=== PATIENT | male | born 1980 | race Hispanic/Latino ===

== ENCOUNTER 2023-08-28 19:18 | Emergency (ER) | payer BC, SELFPAY ==
--- NOTE | ~2023-08-28 | CT_ITS ---
EXAMINATION: CT brain wo con INDICATION: Headache COMPARISON: None TECHNIQUE: Standard unenhanced head CT. The dose-length product (DLP) was 605.33 mGy-cm. The mA was a djusted according to patient size. Iterative reconstruction technique was employed. FINDINGS: No intracranial hemorrhage, acute infarction, or abnormal mass lesion. The ventricles are n ormal. No abnormal mass effect or midline shift. The renner-white matter differentiation is normal. The basal cisterns are patent. The orbits are normal. The paranasal sinuses, mastoids and calvarium are normal. IMPRESSION: 1. No acute intracranial abnormality. Reviewed, dictated and finalized at location F. ING MACHINE OPERATOR
--- NOTE | ~2023-08-28 | XR_ITS ---
EXAMINATION: XR chest 2V DATE: 08/28/2023 21:33 INDICATION: Cough, upper respiratory infection TECHNIQUE: PA and lateral views of the chest are obtained. COMPARISON: None available FINDINGS: The lungs are free of acute opacities. No pleural effusion or pneumothorax. The cardiomedia stinal silhouette is normal. There is mild anterior wedging of multiple thoracic vertebral bodies, li roosevelt physiologic. IMPRESSION: 1. No acute cardiopulmonary abnormality. Reviewed, dictated and finalized at location F. MACOMETRICIAN
[2023-08-28 20:01] VITALS: BP 149/88; PULSE 99; RESP 18; TEMP 37.5; O2SAT 100
[2023-08-28 20:57] LABS: Influenza A QL RT-PCR Negative (Negative); Influenza B QL RT-PCR Negative (Negative); RSV RNA, RT-PCR Negative (Negative); SARS-CoV-2 RNA PCR Negative (Negative)
[2023-08-28] MEDS: ACETAMINOPHEN 500 MG TABLET 1000 MG PO (22:04)
[2023-08-28] MEDS: METOCLOPRAMIDE HCL INJ 10 MG/2 ML VIAL IV PUSH (22:05)
[2023-08-28] MEDS: SODIUM CHLORIDE 0.9% IV 1,000 ML 999 ML IV CONT ×2 (22:05)
[2023-08-28] MEDS: diphenhydrAMINE HCl INJ 50 MG/ML VIAL 25 MG IV PUSH (22:05)
--- NOTE | 2023-08-28 22:14 | ED.URI ---
HPI - URI/Sore Throat General Chief Complaint: Upper Respiratory Infection Stated Complaint: headache, flu-like symptoms for 3 weeks Time Seen by Provider: 08/28/23 20:40 Source: patient Mode of arrival: ambulatory Limitations: no limitations History of Present Illness HPI Narrative: Patient is a 43-year-old male who presents the ED with multiple complaints. Patient reports having ongoing upper respiratory symptoms for the last 3 weeks since around [place] time. He complains of intermittent fevers, cough, congestion, weakness, myalgias, headaches, nausea. He has been taking Advil for his symptoms. States headache is worse today than usual, mostly in his frontal region which prompted his presentation. He denies dizziness, lightheadedness, vision changes, chest pain. Denies feeling numbers with similar symptoms or known sick contacts. Related Data Allergies Allergy/AdvReac Type Severity Reaction Status Date / Time No Known Allergies Allergy Verified 08/28/23 22:00 Review of Systems Review of Systems: CONSTITUTIONAL: See HPI ENT: See HPI. CARDIOVASCULAR: Denies chest pain, palpitations, or edema. RESPIRATORY: See HPI. GASTROINTESTINAL: See HPI. GENITOURINARY: Denies dysuria or hematuria. MUSCULOSKELETAL: Reports myalgia. NEUROLOGIC: See HPI. All systems reviewed & are unremarkable except as noted in HPI and below Exam Narrative: GENERAL: Mildly ill appearing, obese with BMI of 37.6, non-toxic, in no acute distress. HEAD: Normocephalic, atraumatic. EENT: PERRL/EOMI, conjunctiva clear bilaterally. Mucous membranes moist. Mild posterior pharynx erythema. No tonsillar hypertrophy or exudate. Uvula midline. NECK: Supple. No meningeal signs. RESPIRATORY: Airway patent, respirations nonlabored. Clear to auscultation bilaterally, no rales, rhonchi, wheezing. No significant focal lung sounds. CARDIOVASCULAR: Borderline tachycardic with regular rhythm without murmurs, rubs, or gallops. MUSCULOSKELETAL: Moves all extremities. No gross deformities. SKIN: Warm, dry, normal color. NEURO: A&O X3. Speech clear. Cranial nerves II-XII grossly intact. No ataxic movements. No focal deficits. PSYCHIATRIC: Appropriate mood and affect. Normal interaction. Course Vital Signs Vital signs: Vital Signs Temperature 99.5 F 08/28/23 20:01 Pulse Rate 99 08/28/23 20:01 Respiratory Rate 18 08/28/23 20:01 Blood Pressure 149/88 H 08/28/23 20:01 Pulse Oximetry 100 08/28/23 20:01 Oxygen Delivery Room Air 08/28/23 20:01 Temperature 99.5 F 08/28/23 20:01 Pulse Rate 99 08/28/23 20:01 Respiratory Rate 18 08/28/23 20:01 Blood Pressure 149/88 H 08/28/23 20:01 Pulse Oximetry 100 08/28/23 20:01 Oxygen Delivery Room Air 08/28/23 20:01 MDM - URI/Sore Throat MDM Narrative Medical decision making narrative: Patient presented to ED with several week history of upper respiratory symptoms, headaches, intermittent fevers. Biggest concern is his headache today. Vital signs stable upon arrival. Patient borderline febrile. He did take Advil several hours prior to arrival. Will start fluids and migraine cocktail. CT brain negative. Chest x-ray clear. Viral swabs negative. Snyder testing negative. Basic laboratory studies with minimal leukocytosis of 11.1, mild transaminitis. Otherwise fairly unremarkable. Patient without any RUQ abdominal pain or tenderness on exam. Could be viral related. Patient updated on lab and imaging findings. On re-evaluation, he is feeling much better with supportive therapy. Headache improved. Discussed possibility of viral infection, migraine, management of such. Will send prescriptions for nausea and cough. At this time, feel patient is stable for discharge home and continued OP management. Advised close follow-up with primary care doctor for further evaluation. Given return precautions. Patient in agreement plan. Discharged in stable condition. Medical Records
[2023-08-28 22:19] LABS: Basophils Percent Auto 0.2 % (0.2-1.2); Eosinophils Percent Auto 0.2 % (0-4.4); Hematocrit 40.9 % (42.0-52.0); Hemoglobin 13.3 g/dL (14.0-18.0); Immature Granulocyte Absolute 0.03 K/mm3 (0.00-0.031); Immature Granulocyte Percent A 0.3 % (0-0.5); Lymphocytes Absolute Auto 2.27 K/mm3 (0.9-3.2); Lymphocytes Percent Auto 20.5 % (18.3-44.2); Mean Corpuscular HGB Conc 32.5 g/dl (32-36); Mean Corpuscular Volume 92.1 fl (80-100); Mean Platelet Volume 11.3 fl (7.4-10.4); Monocytes Percent Auto 9.1 % (2.6-8.5); Neutrophils Absolute Auto 7.8 K/mm3 (1.3-6.7); Neutrophils Percent Auto 69.7 % (45.5-73.1); Platelet Count Result 210 k/mm3 (150-375); Red Blood Count 4.44 M/mm3 (4.6-6.20); Red Cell Distribution Width 11.9 % (11.5-14.5); White Blood Count 11.1 K/mm3 (4.5-10.0)
[2023-08-28 22:30] LABS: Alanine Aminotransferase 129 U/L (6-50); Albumin Level 4.4 g/dL (3.5-5.1); Alkaline Phosphatase 124 U/L (38-126); Anion Gap 6 mmol/L (8-16); Aspartate Amino Transferase 85 U/L (17-59); Bilirubin,Total 0.6 mg/dL (0.2-1.3); Blood Urea Nitrogen 9 mg/dL (9-20); Calcium 8.9 mg/dL (8.4-10.2); Carbon Dioxide 29 mmol/L (22-30); Chloride 101 mmol/L (98-107); Estimated CRCL calculation 101 ml/min; Estimated Glomerular Filt Rate > 60; Glucose 124 mg/dL (65-110); Potassium 3.8 mmol/L (3.4-5.0); Sodium 136 mmol/L (137-145)
[2023-08-28 22:46] LABS: Monoscreen Negative (Negative); Negative Monotest Control Negative (Negative); Positive Monotest Control Positive (Positive)
[2023-08-28] MEDS: KETOROLAC 30 MG/ML VIAL (*BKC) IV PUSH (22:57)
== END 2023-08-28 23:24 | disposition home or self-care (01) ==
PROVIDERS: Emergency Medicine; Emergency Provider Physician Assistant
DX: J06.9 Acute upper respiratory infection, unspecified (principal); B34.9 Viral infection, unspecified; R51.9 Headache, unspecified; Z20.822 Contact with and (suspected) exposure to COVID-19
CPT/HCPCS: 36415; 70450; 71046; 80053; 85025; 86308; 87637; 96361; 96374; 96375; 99284; A9270; J1100; J1200; J1885; J2765; J7030